=== PATIENT | male | born 1980 | race African-American/Black ===

== ENCOUNTER 2017-01-21 03:30 | Emergency (ER) | payer SELFPAY ==
[~2017-01-21] VITALS: Ht 188 cm; Wt 77.1 kg
[2017-01-21] MEDS ORDERED: NKM (03:38)
[2017-01-21 03:50] VITALS: BP 149/90
[2017-01-21] MEDS ORDERED: NORCO 5-325 TA1 EACH ORAL (04:00)
[2017-01-21] MEDS ORDERED: Norco 5mg/325mg tab ORAL ONE (04:00)
[2017-01-21] MEDS ORDERED: AMOXICILLIN500 MG ORAL (04:00)
[2017-01-21 04:11] VITALS: BP 149/90
--- NOTE | 2017-01-24 07:16 | Emergency Room Report ---
History of Present Illness General Chief Complaint: Toothache Source: Patient Present Illness HPI 36-year-old male presents ED complaining of tooth pain. Notes pain and left upper tooth for 2 weeks now. Pain is sharp. 10 out of 10. Radiating to the left ear and through the left-sided jaw. No other aggravating or relieving factors. Denies any fevers or chills. Denies neck stiffness. Denies sore throat. No other aggravating relieving factors. Denies any other associated symptoms Allergies: Coded Allergies: No Known Allergies (Unverified , 01/21/17) Patient History Past Medical History: none Past Surgical History: none Pertinent Family History: none Social History: Denies: alcohol use, drug use, smoking Immunizations: UTD Reviewed Nursing Documentation: PMH: Agreed, PSxH: Agreed Nursing Documentation-PMH Past Medical History: No Stated History Review of Systems All Other Systems: negative except mentioned in HPI Physical Exam Vital Signs Date Time Temp Pulse Resp B/P Pulse Ox O2 Delivery O2 Flow Rate FiO2 01/21/17 03:34 97.3 64 18 149/90 97 Room Air Sp02 EP Interpretation: reviewed, normal General Appearance: no apparent distress, alert, GCS 15, non-toxic Head: normocephalic, atraumatic Eyes: bilateral eye PERRL, bilateral eye normal inspection ENT: hearing grossly normal, normal pharynx, no angioedema, normal voice, TMs + canals normal, other - poor dentition. L upper molar with surrounding erythema/induration. no fluctuance Neck: full range of motion, supple/symm/no masses Respiratory: chest non-tender, lungs clear, normal breath sounds, speaking full sentences Cardiovascular #1: regular rate, rhythm, no edema Cardiovascular #2: 2+ carotid (R), 2+ carotid (L), 2+ radial (R), 2+ radial (L) , 2+ dorsalis pedis (R), 2+ dorsalis pedis (L) Gastrointestinal: normal bowel sounds, non tender, soft, non-distended, no guarding, no rebound Rectal: deferred Genitourinary: normal inspection, no CVA tenderness Musculoskeletal: back normal, gait/station normal, normal range of motion, non- tender Neurologic: alert, oriented x3, responsive, motor strength/tone normal, sensory intact, speech normal Psychiatric: judgement/insight normal, memory normal, mood/affect normal, no suicidal/homicidal ideation Reflexes: 3+ bicep (R), 3+ bicep (L), 3+ tricep (R), 3+ tricep (L), 3+ knee (R) , 3+ knee (L) Skin: normal color, no rash, warm/dry, well hydrated Lymphatic: no adenopathy Medical Decision Making Diagnostic Impression: Primary Impression: Toothache ER Course 36-year-old male presents ED complaining of tooth pain. differential - Cracked tooth, dental abscess, cavity Patient placed on stretcher. After initial history, physical exam reveals a male in mild distress. There is a tooth in the left upper jaw with surrounding erythema and induration. No fluctuance. Likely dental abscess Given pain medications in ED with pain improved Diagnosis-toothache Stable and discharged to home prescription for [place] and amoxicillin. Instructed to see dentist as a walk-in this week. Return to ED if symptoms recur or worse Last Vital Signs Date Time Temp Pulse Resp B/P Pulse Ox O2 Delivery O2 Flow Rate FiO2 01/21/17 04:11 97.3 74 18 149/90 97 Room Air Status: improved Disposition: HOME, SELF-CARE Condition: Stable Scripts Amoxicillin* (AMOXIL*) 500 Mg Capsule 500 MG ORAL THREE TIMES A DAY, #21 CAP Prov: SD RODRIGEZ M.D. 01/21/17 Hydrocodone Bit/Acetaminophen 5-325* (NORCO 5-325*) 1 Each Tablet 1 TAB ORAL Q6H Y for For Pain, #10 TAB 0 Refills Prov: SD RODRIGEZ M.D. 01/21/17 Referrals: NOT CHOSEN [facility]/,REFERRING (PCP) Patient Instructions: Dental Pain SD RODRIGEZ M.D. Jan 24, 2017 07:16
== END 2017-01-21 04:11 | disposition home or self-care (01) ==
LOC: EMR 04:00
DX: K08.89 Other specified disorders of teeth and supporting structures (principal)
CPT/HCPCS: 99284